=== PATIENT | male | born 1945 | race Caucasian/White ===

== ENCOUNTER 2016-11-22 07:51 | Emergency (ER) | payer MEDICARE, OTHER ==
[2016-11-22] MEDS ORDERED: TYLENOL 325 MG PO STA (08:18)
[2016-11-22] MEDS ORDERED: TYLENOL 325 MG ONE (08:46)
--- NOTE | 2016-11-22 08:48 | ERPHSYRPT ---
- History of Present Illness Time Seen by Provider: 11/22/16 08:07 Source: patient Exam Limitations: clinical condition Patient Subjective Stated Complaint: was knocked down by his horse yesterday and now having left lateral rib pain. unable to take a deep breath Triage Nursing Assessment: ambulated to room without difficulty. skin w/d, color normal, resp shallow, unable to take a deep breath without severe pain. breath sounds normal. no bruising or deformity noted to chest. Physician History: PATIENT STATES HE WAS KNOCKED DOWN BY HIS HORSE YESTERDAY, FELL TO GROUND SUSTAINED INJURY TO LEFT LATERAL RIBS BELOW ARM PIT. HAS PAIN UPON INSPIRATION AND MOTION OF TORSO. DENIES ASSOCIATED HEAD, NECK, BACK INJURY, DYSPNEA, NUMBNESS, TINGLING OR WEAKESS IN EXTREMITIES. Occurred: yesterday Reason for Fall: fell from standing pos (KNOCKED DOWN BY HORSE) Injuries/Pain Location: chest Loss of Consciousness: no loss of consciousness Quality: throbbing Severity of Pain-Max: moderate Severity of Pain-Current: moderate Modifying Factors: Improves With: movement, other (WITH INSPIRATION) Associated Symptoms (Fall): denies symptoms Allergies/Adverse Reactions: No Known Drug Allergies Allergy (Verified 11/22/16 07:57) Home Medications: Amlodipine Besylate 5 mg [Norvasc 5 mg] 5 mg PO HS 03/06/12 [History] Aspirin 81 mg PO DAILY 03/06/12 [History] Carvedilol 12.5 mg [Coreg 12.5 mg] 12.5 mg PO BID 03/06/12 [History] Cilostazol 100 mg PO HS 03/06/12 [History] Esomeprazole Magnesium [Nexium] 40 mg PO DAILY 03/06/12 [History] HydrALAzine HCL 25 MG TAB [Apresoline 25 MG] 50 mg PO TID 03/06/12 [History] Allopurinol 100 mg [Zyloprim 100 mg] 100 mg PO DAILY 11/22/16 [History] Atorvastatin Calcium [Lipitor] 10 mg PO DAILY 11/22/16 [History] Hx Tetanus, Diphtheria Vaccination/Date Given: (UNSURE) Hx Influenza Vaccination/Date Given: Yes Hx Pneumococcal Vaccination/Date Given: No - Review of Systems Constitutional: No Fever, No Chills Eyes: No Symptoms Ears, Nose, & Throat: No Symptoms Respiratory: No Cough, No Dyspnea Cardiac: Chest Pain, No Edema, No Syncope Abdominal/Gastrointestinal: No Symptoms, No Abdominal Pain, No Nausea, No Vomiting, No Diarrhea Genitourinary Symptoms: No Symptoms, No Dysuria Musculoskeletal: No Symptoms, No Back Pain, No Neck Pain Skin: No Symptoms, No Rash Neurological: No Dizziness, No Focal Weakness, No Sensory Changes Psychological: No Symptoms Endocrine: No Symptoms All Other Systems: Reviewed and Negative - Past Medical History Pertinent Past Medical History: Yes Neurological History: No Pertinent History ENT History: No Pertinent History Cardiac History: High Cholesterol, Hypertension Respiratory History: No Pertinent History Endocrine Medical History: No Pertinent History Musculoskeletal History: No Pertinent History GI Medical History: No Pertinent History History: No Pertinent History Psycho-Social History: No Pertinent History Male Reproductive Disorders: No Pertinent History - Past Surgical History Past Surgical History: Yes Neuro Surgical History: No Pertinent History Cardiac: Cardiac Stent Respiratory: No Pertinent History Gastrointestinal: Colon Resection Genitourinary: No Pertinent History Musculoskeletal: No Pertinent History Male Surgical History: No Pertinent History - Social History Smoking Status: Never smoker Exposure to second hand smoke: No Drug Use: none Patient Lives Alone: Yes - Nursing Vital Signs Nursing Vital Signs: Initial Vital Signs Temperature 97.7 F Temperature Source Oral Pulse Rate 70 Respiratory Rate 16 Blood Pressure [] 144/78 Pain Intensity 4 - Robert Coma Score Best Eye Response ([place]): (4) open spontaneously Best Verbal Response ([place]): (5) oriented Best Motor Response (Robert): (6) obeys commands Robert Total: 15 - Physical Exam General Appearance: no apparent distress, alert Head Injury: no evidence of injury Eye Exam: PERRL/EOMI ENT Exam: airway nml Neck Exam: normal inspection, No tenderness Respiratory/Chest Exam: chest tenderness (LEFT LATERAL CHEST WALL 4TH TO 6TH RIBS INFERIOR TO AXILLA, NO ECCHYMOSIS OR CREPITUS), normal breath sounds, No respiratory distress Cardiovascular Exam: normal heart sounds, regular rate/rhythm Gastrointestinal Exam: soft, normal bowel sounds (NONTENDER), No tenderness, No distention, No guarding, No ecchymosis Back Exam: normal inspection, No vertebral tenderness Extremity Exam: normal inspection, normal range of motion, pelvis stable, No deformities Peripheral Pulses: carotid (R): 2+, carotid (L): 2+, femoral (R): 2+, femoral (L ): 2+, dorsalis-pedis (R): 2+, dorsalis-pedis (L): 2+ Neurologic Exam: alert, oriented x 3, cooperative, sensation nml, No motor deficits Skin Exam: normal color, warm, dry SpO2: 96 Oxygen Delivery: Room Air - Radiology Exams Chest X-ray Interpretation: Discussed w/ radiologist (UNDERINFLATED CHEST WITH BORDERLINE CARDIOMEGALY, LEFT 4TH/5TH RIB FRACTURES WITHOUT HEMOTHORAX OR PNEUMOTHORAX) Left Ribs X-ray Interpretation: Discussed w/ radiologist (DISPLACED LEFT LATERAL 4TH, 5TH RIB FRACTURES) Ordered Tests: Active Orders 24 hr Category Date Time Status IV Insertion STAT Care 11/22/16 08:48 Active CHEST 2 VIEWS (PA AND LAT) Stat Exams 11/22/16 08:17 Completed CHEST WITH CONTRAST [CT] Stat Exams 11/22/16 08:49 Stop Req RIBS UNILATERAL Stat Exams 11/22/16 08:17 Completed BMP Stat Lab 11/22/16 08:54 Completed CBC W DIFF Stat Lab 11/22/16 08:54 Completed Medication Summary Generic Name Dose Route Start Last Admin Trade Name Freq PRN Reason Stop Dose Admin Sodium Chloride 1,000 mls @ 50 mls/hr 11/22/16 09:00 11/22/16 09:03 Sodium Chloride 0.9% 1000 Ml IV 12/22/16 08:59 50 mls/hr .Q20H SUN Administration Discontinued Medications Generic Name Dose Route Start Last Admin Trade Name Freq PRN Reason Stop Dose Admin Acetaminophen 650 mg 11/22/16 08:18 11/22/16 08:47 Tylenol 325 Mg PO 11/22/16 08:19 650 mg STAT STA Administration Acetaminophen Confirm 11/22/16 08:46 Tylenol 325 Mg Administered 11/22/16 08:47 Dose 650 mg .ROUTE .STK-MED ONE Sodium Chloride Confirm 11/22/16 09:02 Sodium Chloride 0.9% 1000 Ml Administered 11/22/16 09:03 Dose 1,000 mls @ ud .ROUTE .STK-MED ONE Lab/Rad Data: Laboratory Result Diagrams 11/22/16 08:54 11/22/16 08:54 Laboratory Results 11/22/16 11/22/16 Range/Units 08:54 08:54 WBC 10.2 (4.0-10.5) K/mm3 RBC 4.74 (4.1-5.6) M/mm3 Hgb 14.4 (12.5-18.0) gm/dl Hct 44.2 (42-50) % MCV 93.2 (78-100) fl MCH 30.4 (26-32) pg MCHC 32.6 (32-36) g/dl RDW 13.5 (11.5-14.0) % Plt Count 222 (150-450) K/mm3 MPV 9.9 H (6-9.5) fl Gran % 80.8 H (36.0-66.0) % Lymphocytes % 9.2 L (24.0-44.0) % Monocytes % 7.3 (0.0-12.0) % Eosinophils % 2.4 (0.00-5.0) % Basophils % 0.3 (0.0-0.4) % Basophils # 0.03 (0-0.4) Sodium 140 (136-145) mEq/L Potassium 4.8 (3.5-5.1) mEq/L Chloride 103 (98-107) mEq/L Carbon Dioxide 25.8 (21-32) mEq/L Anion Gap 16.0 H (5-15) MEQ/L BUN 25 H (9-20) mg/dL Creatinine 1.69 H (0.55-1.30) mg/dl Estimated GFR 43 ML/MIN Glucose 122 H (70-110) MG/DL Calcium 9.4 (8.5-10.1) mg/dL - Progress Progress: unchanged Progress Note: 11/22/16 10:16 UNABLE TO GIVE ANALGESICS DUE TO DRIVING HOME WITHOUT A SHIPPING AND RECEIVING COORDINATOR Counseled pt/family regarding: lab results, diagnosis, need for follow-up - Departure Time of Disposition: 10:20 Departure Disposition: Home Clinical Impression: DISPLACED LEFT 4TH-5TH RIBS Condition: Stable Critical Care Time: No Additional Instructions: FOLLOWUP WITH YOUR FAMILY PHYSICIAN IN 1 WEEK. NORCO 10/325 EVERY 4 HOURS NEEDED FOR PAIN. AVOID LIFTING OVER 10 POUNDS USING LEFT ARM FOR 4 WEEKS. RETURN TO EMERGENCY ROOM FOR INCREASING PAIN OR ONSET OF SHORTNESS OF BREATH. Prescriptions: Hydrocodone/APAP 10/325 mg [Irma 10/325 MG Tablet] 1 tab PO Q4H PRN PRN # 25 tablet PRN Reason: Pain
[2016-11-22] MEDS ORDERED: Sodium Chloride 0.9% 1000 ML 1,000 ML IV SCH (09:00)
--- NOTE | 2016-11-22 09:01 | XRAY ---
Indication: Left-sided chest pain following horse injury. Comparison: None 2 views of the left ribs demonstrates minimally displaced lateral 4th/5th rib fractures and multilevel thoracolumbar degenerative changes. No other bony, articular, or soft tissue abnormalities.
[2016-11-22] MEDS ORDERED: Sodium Chloride 0.9% 1000 ML 1,000 ML ONE (09:02)
--- NOTE | 2016-11-22 09:03 | XRAY ---
Indication: Left-sided chest pain following horse injury. Comparison: None PA/lateral chest underinflated accentuating the cardiopulmonary structures. No focal infiltrate, consolidation, large effusion, or pneumothorax. Heart is borderline enlarged. Suspect new retrocardiac hiatal hernia. Minimally displaced lateral 4th/5th rib fractures and multilevel spinal degenerative changes. Impression: 1. Left 4th/5th acute rib fractures without hemothorax or pneumothorax. 2. Underinflated chest with borderline cardiomegaly. 3. Suspect hiatal hernia.
[2016-11-22 09:07] LABS: BASOPHIL % 0.3 % (0.0-0.4); Eosinophil % 2.4 % (0.00-5.0); Granulocytes % 80.8 % (36.0-66.0); Lymphocytes % 9.2 % (24.0-44.0); Mean Cell Volume 93.2 fl (78-100); Mean Corpuscular Hemoglobin 30.4 pg (26-32); Mean Platelet Volume 9.9 fl (6-9.5); Monocytes % 7.3 % (0.0-12.0); Platelet Count 222 K/mm3 (150-450); Red Blood Count 4.74 M/mm3 (4.1-5.6); Red Cell Distribution Width 13.5 % (11.5-14.0); White Blood Count 10.2 K/mm3 (4.0-10.5)
[2016-11-22 10:02] LABS: Carbon Dioxide 25.8 mEq/L (21-32); Potassium 4.8 mEq/L (3.5-5.1)
[2016-11-22 10:49] VITALS: BP 185/81; PULSE 72; O2SAT 94
== END 2016-11-22 10:49 | disposition home or self-care (01) ==
LOC: ED 07:51
DX: S23.29XA Dislocation of other parts of thorax, initial encounter (principal); W55.12XA Struck by horse, initial encounter
CPT/HCPCS: 36000; 36415; 71020; 71100; 80048; 85025; 96360; 99283

== ENCOUNTER 2016-11-25 08:06 | Emergency (ER) | payer MEDICARE, OTHER ==
[2016-11-25 08:20] VITALS: O2SAT 93
[2016-11-25] MEDS ORDERED: Norflex 60 MG/2 ML IM ONE (08:23)
[2016-11-25] MEDS ORDERED: Norflex 60 MG/2 ML ONE (08:26)
--- NOTE | 2016-11-25 08:27 | ERPHSYRPT ---
- History of Present Illness Time Seen by Provider: 11/25/16 08:23 Source: patient, family Exam Limitations: no limitations Patient Subjective Stated Complaint: PT STATES ON 11/22/16 HE WAS HIT IN THE LEFT RIB AREA BY HIS HORSE. PT STATES HE WAS SEEN IN ER ON THAT DATE AND TREATED FOR FRACTURED RIBS. PT STATES HIS PAIN TODAY IS LIKE A "SPASM TYPE PAIN. " Triage Nursing Assessment: PT PINK, WARM, DRY. MILD SWELLING NOTED UNDER LEFT BREAST, NO BRUISING NO DEFORMITY. LUNG SOUNDS CLEAR AND EQUAL. Physician History: patient had left rib cage injury 3-4 days ago and now c/o spasm on that area, Xray did show 4th / 5th rib fracture 3 days ago Timing/Duration: today Severity: moderate Associated Symptoms: shortness of breath Allergies/Adverse Reactions: No Known Drug Allergies Allergy (Verified 11/25/16 08:19) Home Medications: Amlodipine Besylate 5 mg [Norvasc 5 mg] 5 mg PO HS 03/06/12 [History] Aspirin 81 mg PO DAILY 03/06/12 [History] Carvedilol 12.5 mg [Coreg 12.5 mg] 12.5 mg PO BID 03/06/12 [History] Cilostazol 100 mg PO HS 03/06/12 [History] Esomeprazole Magnesium [Nexium] 40 mg PO DAILY 03/06/12 [History] HydrALAzine HCL 25 MG TAB [Apresoline 25 MG] 50 mg PO TID 03/06/12 [History] Allopurinol 100 mg [Zyloprim 100 mg] 100 mg PO DAILY 11/22/16 [History] Atorvastatin Calcium [Lipitor] 10 mg PO DAILY 11/22/16 [History] Hx Tetanus, Diphtheria Vaccination/Date Given: Yes (UP TO DATE) Hx Influenza Vaccination/Date Given: Yes Hx Pneumococcal Vaccination/Date Given: No Immunizations Up to Date: Yes - Review of Systems Constitutional: No Symptoms Eyes: No Symptoms Ears, Nose, & Throat: No Symptoms Respiratory: Dyspnea on Exertion (ALVAREZ) Cardiac: No Symptoms Abdominal/Gastrointestinal: No Symptoms Genitourinary Symptoms: No Symptoms Musculoskeletal: No Symptoms Skin: No Symptoms - Past Medical History Pertinent Past Medical History: Yes Neurological History: No Pertinent History ENT History: No Pertinent History Cardiac History: High Cholesterol, Hypertension Respiratory History: No Pertinent History Endocrine Medical History: No Pertinent History Musculoskeletal History: No Pertinent History GI Medical History: No Pertinent History History: No Pertinent History Psycho-Social History: No Pertinent History Male Reproductive Disorders: No Pertinent History - Past Surgical History Past Surgical History: Yes Neuro Surgical History: No Pertinent History Cardiac: Cardiac Stent Respiratory: No Pertinent History Gastrointestinal: Colon Resection Genitourinary: No Pertinent History Musculoskeletal: No Pertinent History Male Surgical History: No Pertinent History - Social History Smoking Status: Former smoker Exposure to second hand smoke: No Drug Use: none Patient Lives Alone: No - Nursing Vital Signs Nursing Vital Signs: Initial Vital Signs Temperature 98.4 F Temperature Source Oral Pulse Rate 79 Respiratory Rate 20 Blood Pressure [Left Arm] 209/93 Pain Intensity 8 - Physical Exam General Appearance: no apparent distress, alert Eye Exam: PERRL/EOMI, eyes nml inspection Ears, Nose, Throat Exam: normal ENT inspection, TMs normal, pharynx normal, moist mucous membranes Neck Exam: normal inspection, non-tender, supple, full range of motion Respiratory Exam: normal breath sounds, chest tenderness (left 5th and 6th rib area), lungs clear, No respiratory distress Cardiovascular Exam: regular rate/rhythm, normal heart sounds, normal peripheral pulses Gastrointestinal/Abdomen Exam: soft, normal bowel sounds, No tenderness, No mass Back Exam: normal inspection, normal range of motion, No CVA tenderness, No vertebral tenderness Extremity Exam: normal inspection, normal range of motion, pelvis stable Neurologic Exam: alert, oriented x 3, cooperative, normal mood/affect, nml cerebellar function, nml station & gait, sensation nml, No motor deficits Skin Exam: normal color, warm, dry, No rash Lymphatic Exam: No adenopathy SpO2: 93 Oxygen Delivery: Room Air - Course Nursing assessment & vital signs reviewed: Yes Ordered Tests: Medication Summary Discontinued Medications Generic Name Dose Route Start Last Admin Trade Name Freq PRN Reason Stop Dose Admin Orphenadrine Citrate 60 mg 11/25/16 08:23 11/25/16 08:27 Norflex 60 Mg/2 Ml IM 11/25/16 08:24 60 mg STAT ONE Administration - Progress Progress: unchanged, pain not gone completely Counseled pt/family regarding: diagnosis, need for follow-up - Departure Time of Disposition: 08:25 Departure Disposition: Home Clinical Impression: Rib fractures Qualifiers: Encounter type: subsequent encounter Rib fracture type: multiple ribs Fracture type: closed Laterality: left Fracture healing: with routine healing Qualified Code(s): S22.42XD - Multiple fractures of ribs, left side, subsequent encounter for fracture with routine healing Condition: Stable Critical Care Time: No Referrals: VIDAL ALONZO MD [Primary Care Provider] - Instructions: Rib Fracture, Rib Contusion Prescriptions: Cyclobenzaprine HCl 10 mg [Flexeril 10 MG] 10 mg PO TID #30 tablet
[2016-11-25 09:03] VITALS: BP 161/75; PULSE 75
== END 2016-11-25 09:03 | disposition home or self-care (01) ==
LOC: ED 08:06
DX: S22.42XD Multiple fractures of ribs, left side, subsequent encounter for fracture with routine healing (principal); W55.12XA Struck by horse, initial encounter
CPT/HCPCS: 96372; 99282; J2360

== ENCOUNTER 2019-03-31 06:33 | Emergency (ER) | payer MEDICARE, OTHER ==
--- NOTE | 2019-03-31 06:40 | ERPHSYRPT ---
- History of Present Illness Source: patient, family Timing/Duration: today Activities at Onset: none Severity of Dyspnea-Max: moderate Severity of Dyspnea-Current: moderate Possible Cause: no prior episodes Modifying Factors: Improves With: oxygen (on arrival appears to improve sx) Associated Symptoms: anxiety, wheezing, No chest pain/discomfort, No ankle swelling, No heaviness, No lightheadedness, No leg swelling, No productive cough Hx Tetanus, Diphtheria Vaccination/Date Given: Yes (UP TO DATE) Hx Influenza Vaccination/Date Given: Yes Hx Pneumococcal Vaccination/Date Given: No <EVAN VILLANUEVA - Last Filed: 03/31/19 07:01> <LUIS MANUEL KUHN - Last Filed: 03/31/19 09:01> - History of Present Illness Time Seen by Provider: 03/31/19 06:35 Physician History: 74 y/o white male with h/o htn and gout presents with a few hour h/o sudden onset soa and wheezing. 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 providing most of the hx. pt denies cp and denies abd pain. pt states he feels as though he is drowning. ( EVAN VILLANUEVA) Allergies/Adverse Reactions: No Known Drug Allergies Allergy (Verified 03/31/19 07:10) Home Medications: Amlodipine Besylate 5 mg [Norvasc 5 mg] 5 mg PO HS 03/06/12 [History] Aspirin 81 mg PO DAILY 03/06/12 [History] Carvedilol 12.5 mg [Coreg 12.5 mg] 12.5 mg PO BID 03/06/12 [History] Cilostazol 100 mg PO HS 03/06/12 [History] Esomeprazole Magnesium [Nexium] 40 mg PO DAILY 03/06/12 [History] HydrALAzine HCL 25 MG TAB [Apresoline 25 MG] 50 mg PO TID 03/06/12 [History] Allopurinol 100 mg [Zyloprim 100 mg] 100 mg PO DAILY 11/22/16 [History] Atorvastatin Calcium [Lipitor] 10 mg PO DAILY 11/22/16 [History] - Review of Systems Constitutional: No Symptoms Eyes: No Symptoms Ears, Nose, & Throat: No Symptoms Respiratory: Dyspnea Cardiac: No Chest Pain, No Palpitations, No Syncope Abdominal/Gastrointestinal: No Symptoms Genitourinary Symptoms: No Symptoms Musculoskeletal: No Symptoms Skin: No Symptoms Neurological: No Symptoms Psychological: No Symptoms Endocrine: No Symptoms Hematologic/Lymphatic: No Symptoms Immunological/Allergic: No Symptoms All Other Systems: Reviewed and Negative <EVAN VILLANUEVA - Last Filed: 03/31/19 07:01> - Past Medical History Pertinent Past Medical History: Yes Neurological History: No Pertinent History ENT History: No Pertinent History Cardiac History: High Cholesterol, Hypertension Respiratory History: No Pertinent History Endocrine Medical History: No Pertinent History Musculoskeletal History: No Pertinent History GI Medical History: No Pertinent History History: No Pertinent History Psycho-Social History: No Pertinent History Male Reproductive Disorders: No Pertinent History - Past Surgical History Past Surgical History: Yes Neuro Surgical History: No Pertinent History Cardiac: Cardiac Stent Respiratory: No Pertinent History Gastrointestinal: Colon Resection Genitourinary: No Pertinent History Musculoskeletal: No Pertinent History Male Surgical History: No Pertinent History - Social History Smoking Status: Former smoker Exposure to second hand smoke: No Drug Use: none Patient Lives Alone: No <EVAN VILLANUEVA - Last Filed: 03/31/19 07:01> - Physical Exam General Appearance: moderate distress, alert, anxiety Eye Exam: PERRL/EOMI, eyes nml inspection Ears, Nose, Throat Exam: hearing grossly normal, normal ENT inspection Neck Exam: normal inspection, non-tender, supple, full range of motion Respiratory Exam: respiratory distress (mild), diminished breath sounds (bilat bases), wheezing, No chest tenderness Cardiovascular/Chest Exam: normal heart sounds, regular rate/rhythm, normal peripheral pulses Abdominal/Gastrointestinal Exam: soft, normal bowel sounds, No tenderness, No guarding, No rebound Rectal Exam: not done Extremity Exam: non-tender, normal range of motion, normal inspection, no calf tenderness, no pedal edema, pelvis stable Neurologic Exam: alert, oriented x 3, cooperative, senior advisory II-XII nml as tested, nml cerebellar function, nml station & gait, sensation nml Skin Exam: normal color, warm, dry Lymphatic Exam: No adenopathy <EVAN VILLANUEVA - Last Filed: 03/31/19 07:01> - Physical Exam SpO2 Interpretation: borderline oxygenation (94%) <LUIS MANUEL KUHN - Last Filed: 03/31/19 09:01> - Nursing Vital Signs Nursing Vital Signs: Initial Vital Signs Temperature 98.1 F 03/31/19 06:50 Pulse Rate 91 H 03/31/19 06:50 Respiratory Rate 24 03/31/19 06:50 Blood Pressure 165/74 03/31/19 06:50 O2 Sat by Pulse Oximetry 94 L 03/31/19 06:50 Pain Scale Pain Intensity 0 Ordered Tests: Active Orders 24 hr Category Date Time Status Repair Cameraman STAT Care 03/31/19 06:41 Active EKG-ER Only STAT Care 03/31/19 06:41 Active IV Insertion STAT Care 03/31/19 06:41 Active Pulse Oximetry (ED) STAT Care 03/31/19 06:41 Active CHEST 1 VIEW (PORTABLE) Stat Exams 03/31/19 06:41 Taken ARTERIAL BLOOD GASES Stat Lab 03/31/19 06:41 Completed CBC W DIFF Stat Lab 03/31/19 06:47 Completed CMP Stat Lab 03/31/19 06:47 Completed D-DIMER QUANTITATION Stat Lab 03/31/19 06:47 Completed Lactic Acid Stat Lab 03/31/19 06:41 Completed NT PRO BNP Stat Lab 03/31/19 06:47 Completed TROPONIN Q3H Lab 03/31/19 06:47 Completed TROPONIN Q3H Lab 03/31/19 09:45 Ordered TROPONIN Q3H Lab 03/31/19 12:45 Ordered TROPONIN Q3H Lab 03/31/19 15:45 Ordered TROPONIN Q3H Lab 03/31/19 18:45 Ordered Medication Summary Discontinued Medications Generic Name Dose Route Start Last Admin Trade Name Freq PRN Reason Stop Dose Admin Albuterol Sulfate 2.5 mg 03/31/19 07:50 03/31/19 07:58 Proventil 2.5 Mg/3 Ml Neb IH 03/31/19 07:51 Not Given STAT ONE Furosemide 40 mg 03/31/19 07:37 03/31/19 07:53 Lasix 40 Mg/4 Ml IV 03/31/19 07:38 40 mg STAT ONE Administration Furosemide Confirm 03/31/19 07:52 Lasix 40 Mg/4 Ml Administered 03/31/19 07:53 Dose 40 mg .ROUTE .STK-MED ONE Methylprednisolone Sodium Succinate 125 mg 03/31/19 06:41 03/31/19 06:47 Solu-Medrol 125 Mg IV 03/31/19 06:42 125 mg STAT ONE Administration Methylprednisolone Sodium Succinate Confirm 03/31/19 06:45 Solu-Medrol 125 Mg Administered 03/31/19 06:46 Dose 125 mg .ROUTE .STK-MED ONE Lab/Rad Data: Laboratory Result Diagrams 03/31/19 06:47 03/31/19 06:47 Laboratory Results 03/31/19 03/31/19 03/31/19 Range/Units 06:47 06:47 06:47 WBC (4.0-10.5) K/mm3 RBC (4.1-5.6) M/mm3 Hgb (12.5-18.0) gm/dl Hct (42-50) % MCV (78-100) fl MCH (26-32) pg MCHC (32-36) g/dl RDW (11.5-14.0) % Plt Count (150-450) K/mm3 MPV (6-9.5) fl Gran % (36.0-66.0) % Eos # (Auto) (0-0.5) Absolute Lymphs (auto) (1.0-4.6) Absolute Monos (auto) (0.0-1.3) Lymphocytes % (24.0-44.0) % Monocytes % (0.0-12.0) % Eosinophils % (0.00-5.0) % Basophils % (0.0-0.4) % Absolute Granulocytes (1.4-6.9) Basophils # (0-0.4) D-Dimer 1549 H* (215-500) ng/mL Puncture Site pCO2 (35-45) mmHg pO2 (75-100) mmHg Base Excess (-2.0-2.0) O2 Saturation (94-100) g/dF ABG pH (7.35-7.45) ABG HCO3 (22-28) ABG O2 Sat (Measured) (95-100) % Rtavis Test A-a Gradient a/A Ratio Hemoglobin Carboxyhemoglobin (0.0-6.9) % THgb Methemoglobin (1.4-1.5) % Potassium 4.3 (3.5-5.1) Temperature C POC O2 Flow Rate % Sodium 140 (137-145) mmol/L Chloride 104 (98-107) mmol/L Carbon Dioxide 24 (22-30) mmol/L Anion Gap 16.5 H (5-15) MEQ/L BUN 26 H (9-20) mg/dL Creatinine 1.63 H (0.66-1.25) mg/dL Estimated GFR 44.1 ML/MIN Glucose 129 H (74-106) mg/dL Lactic Acid (0.4-2.0) Calcium 9.7 (8.4-10.2) mg/dL Total Bilirubin 1.00 (0.2-1.3) mg/dL AST 24 (17-59) U/L ALT 23 (0-50) U/L Alkaline Phosphatase 94 (38-126) U/L Troponin I 0.015 (0.000-0.034) ng/mL NT-Pro-B Natriuret Pep 4050 H (0-1800) pg/mL Serum Total Protein 8.4 H (6.3-8.2) g/dL Albumin 4.3 (3.5-5.0) g/dL 03/31/19 03/31/19 Range/Units 06:47 06:41 WBC 10.8 H (4.0-10.5) K/mm3 RBC 4.28 (4.1-5.6) M/mm3 Hgb 13.1 (12.5-18.0) gm/dl Hct 40.7 L (42-50) % MCV 95.1 (78-100) fl MCH 30.6 (26-32) pg MCHC 32.2 (32-36) g/dl RDW 14.8 H (11.5-14.0) % Plt Count 228 (150-450) K/mm3 MPV 10.1 H (6-9.5) fl Gran % 80.7 H (36.0-66.0) % Eos # (Auto) 0.24 (0-0.5) Absolute Lymphs (auto) 0.89 L (1.0-4.6) Absolute Monos (auto) 0.93 (0.0-1.3) Lymphocytes % 8.3 L (24.0-44.0) % Monocytes % 8.6 (0.0-12.0) % Eosinophils % 2.2 (0.00-5.0) % Basophils % 0.2 (0.0-0.4) % Absolute Granulocytes 8.70 H (1.4-6.9) Basophils # 0.02 (0-0.4) D-Dimer (215-500) ng/mL Puncture Site RIGHT RADIAL pCO2 38 (35-45) mmHg pO2 68 L (75-100) mmHg Base Excess -1.1 (-2.0-2.0) O2 Saturation 92.7 L (94-100) g/dF ABG pH 7.40 (7.35-7.45) ABG HCO3 23.5 (22-28) ABG O2 Sat (Measured) 95.4 (95-100) % Travis Test YES A-a Gradient 113 a/A Ratio 0.38 Hemoglobin 12.9 Carboxyhemoglobin 2.1 (0.0-6.9) % THgb Methemoglobin 0.8 L (1.4-1.5) % Potassium 4.0 (3.5-5.1) Temperature 37.0 C POC O2 Flow Rate 32 % Sodium (137-145) mmol/L Chloride (98-107) mmol/L Carbon Dioxide (22-30) mmol/L Anion Gap (5-15) MEQ/L BUN (9-20) mg/dL Creatinine (0.66-1.25) mg/dL Estimated GFR ML/MIN Glucose (74-106) mg/dL Lactic Acid 1.4 (0.4-2.0) Calcium (8.4-10.2) mg/dL Total Bilirubin (0.2-1.3) mg/dL AST (17-59) U/L ALT (0-50) U/L Alkaline Phosphatase (38-126) U/L Troponin I (0.000-0.034) ng/mL NT-Pro-B Natriuret Pep (0-1800) pg/mL Serum Total Protein (6.3-8.2) g/dL Albumin (3.5-5.0) g/dL - Progress Progress: improved <EVAN VILLANUEVA - Last Filed: 03/31/19 07:01> - Progress Progress: improved Air Movement: fair <LUIS MANUEL KUHN - Last Filed: 03/31/19 09:01> - Progress Progress Note: 03/31/19 07:[address] kuhn. i reviewed current results of returned labs and tests pending. he accepts pt in transfer (EVAN VILLANUEVA) 03/31/19 07:38 This is a 74-year-old white male who arrives with complaint of shortness of breath and wheezing symptoms since 2:00 this morning he states he woke up feeling this way around 2:00 he denies any chest pain he has no abdominal pain no nausea no vomiting no fevers. Patient with history of hypercholesterolemia high blood pressure he is very hard of hearing but communicates very well with with lip reading. Patient was seen initially by Dr. Villanueva given Solu-Medrol IV He states he is feeling much better. Physical examination well-developed obese white male he is alert oriented x3 he does not appear to be in acute distress. Head is atraumatic normocephalic. Eyes PERRLA EOMI. Ears TMs crum intact bilaterally. Nose is clear. Throat is clear Neck is supple. Lungs initially bilateral wheezes now clear. Heart regular rate rhythm without murmur. Abdomen soft nontender nondistended positive bowel sounds. Extremities full range of motion pulse equal symmetrical two over four. Neuro cranial nerves II through XII are intact DTRs symmetrical two over four [place] Coma Scale 15. EKG sinus rhythm 83 beats per minute axisSI/QIII pattern, no acute ST or T wave changes old EKG for comparison. Chest x-ray diffuse increased interstitial lung markings consider pulmonary edema labs chemistry sodium 140 potassium 4.2 chloride 104 bicarbonate 24 BUN 26 creatinine 1.63 close 129 anion gap 16.5. BNP 4050. CBC white blood cell 10.8 hemoglobin 13.1 hematocrit 40.7 platelets 228. D-dimer is elevated at 1549 ABGs pH 7.4 pc02 38, po2 68 o2 saturation, 92.7 . Patient's GFR is 44.1. Troponin 0.015. Impression 1 shortness of breath. 2. Congestive heart failure. 3. Increased d-dimer. 4. Chronic renal failure. .Patient is improved with Solu-Medrol he does show pulmonary edema on chest x- ray and has an elevated BNP. Will give patient Lasix 40 mg IV. Patient did have elevated d-dimer unable to do CTA on this patient he has a low GFR and has been told by his renal doctor not to get IV contrast. We did not have VQ scan availability today. Contacted [facility] for possible transfer I discussed the case with transfer center [facility]. She will contact ER physician and call back. 03/31/19 07:52 03/31/19 07:54 03/31/19 08:06 Patient accepted for transfer to [facility] accepting physician Dr. Cruz. (LUIS MANUEL KUHN) <EVAN VILLANUEVA - Last Filed: 03/31/19 07:01> - Departure Departure Disposition: Transfer (Formerly [facility], [facility]) Critical Care Time: No <LUIS MANUEL KUHN - Last Filed: 03/31/19 09:01> - Departure Clinical Impression: Shortness of breath, increased d-dimer CHF (congestive heart failure) Qualifiers: Heart failure type: unspecified Heart failure chronicity: acute Qualified Code( s): I50.9 - Heart failure, unspecified Condition: Fair Referrals: VIDAL ALONZO MD [Primary Care Provider] - Instructions: Heart Failure
[2019-03-31] MEDS ORDERED: solu-MEDROL 125 MG IV ONE (06:41)
[2019-03-31 06:44] LABS: A-aADO2 113; ABG HEMOGLOBIN 12.9; ABG SITE RIGHT RADIAL; ALLEN TEST OK? YES; ARTERIAL BLD GAS O2 SATURATION 95.4 % (95-100); ARTERIAL BLOOD GAS BASE EXCESS -1.1 (-2.0-2.0); ARTERIAL BLOOD GAS FIO2 32 %; ARTERIAL BLOOD GAS PCO2 38 mmHg (35-45); ARTERIAL BLOOD GAS PO2 68 mmHg (75-100); CARBOXYHEMOGLOBIN 2.1 % THgb (0.0-6.9); HCO3- 23.5 (22-28); HGB O2 SAT 92.7 g/dF (94-100); Lactic Acid 1.4 (0.4-2.0); Methhemoglobin 0.8 % (1.4-1.5); paO2 pAO1 0.38
[2019-03-31] MEDS ORDERED: solu-MEDROL 125 MG ONE (06:45)
[2019-03-31 06:52] LABS: BASOPHIL % 0.2 % (0.0-0.4); Basophil (Absolute #) 0.02 (0-0.4); Eosinophil % 2.2 % (0.00-5.0); Eosinophil (Absolute #) 0.24 (0-0.5); Granulocytes % 80.7 % (36.0-66.0); Hematocrit 40.7 % (42-50); Hemoglobin 13.1 gm/dl (12.5-18.0); Lymphocyte (Absolute #) 0.89 (1.0-4.6); Lymphocytes % 8.3 % (24.0-44.0); Mean Cell Volume 95.1 fl (78-100); Mean Corpuscular Hemoglobin 30.6 pg (26-32); Mean Corpuscular Hgb Concent. 32.2 g/dl (32-36); Mean Platelet Volume 10.1 fl (6-9.5); Monocyte (Absolute #) 0.93 (0.0-1.3); Monocytes % 8.6 % (0.0-12.0); Platelet Count 228 K/mm3 (150-450); Red Blood Count 4.28 M/mm3 (4.1-5.6); Red Cell Distribution Width 14.8 % (11.5-14.0); White Blood Count 10.8 K/mm3 (4.0-10.5)
[2019-03-31 07:18] LABS: ALBUMIN 4.3 g/dL (3.5-5.0); ANION GAP 16.5 MEQ/L (5-15); Calcium 9.7 mg/dL (8.4-10.2); Creatinine 1 1.63 mg/dL (0.66-1.25); Potassium 4.3 mmol/L (3.5-5.1); Total Protein 8.4 g/dL (6.3-8.2)
[2019-03-31 07:31] VITALS: BP 158/91
[2019-03-31] MEDS ORDERED: Lasix 40 MG/4 ML IV ONE (07:37)
[2019-03-31] MEDS ORDERED: PROVENTIL 2.5 MG/3 ML NEB IH ONE (07:50)
[2019-03-31] MEDS ORDERED: Lasix 40 MG/4 ML ONE (07:52)
[2019-03-31 07:57] VITALS: PULSE 82; O2SAT 83
--- NOTE | 2019-03-31 09:13 | XRAY ---
Indication: Short of breath. Comparison: November 22, 2016. Portable chest better inflated with new diffuse pulmonary edema. No focal infiltrate, consolidation, or large effusion. Heart remains borderline enlarged. Bony thorax again demonstrates osteopenia and degenerative changes. Impression: Borderline cardiomegaly and pulmonary edema. Rule out cardiac decompensation. Superimposed pneumonia not completely excluded.
== END 2019-03-31 09:01 | disposition short-term general hospital (02) ==
LOC: ED 06:33
DX: R06.02 Shortness of breath (principal); R79.1 Abnormal coagulation profile; I50.9 Heart failure, unspecified; Z79.899 Other long term (current) drug therapy; E78.00 Pure hypercholesterolemia, unspecified; I10 Essential (primary) hypertension
CPT/HCPCS: 36000; 36415; 36600; 71045; 80053; 82375; 82803; 83605; 83880; 84484; 85025; 85379; 93005; 93041; 96374; 96375; 99285; J1940; J2930